=== PATIENT | male | born 2005 | race Hispanic/Latino ===

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

== ENCOUNTER 2024-05-08 20:28 | Emergency (ER) | payer OTHER, SELFPAY ==
--- NOTE | 2024-05-08 20:48 | ER ---
Nurse's Notes [facility] Name: Marcus Shetty Age: 18 yrs Sex: Male : 2005 Arrival Date: 05/08/2024 Time: 20:28 Bed 20 Private MD: Diagnosis: Bitten by dog Presentation: 05/08 20:39 Chief complaint: Patient states: was out on a run and got bit by a dog on bilateral al5 lower legs. Coronavirus screen: At this time, the client does not indicate any symptoms associated with coronavirus-19. Ebola Screen: No symptoms or risks identified at this time. Initial Sepsis Screen: Does the patient meet any 2 criteria? No. Patient's initial sepsis screen is negative. Does the patient have a suspected source of infection? No. Patient's initial sepsis screen is negative. Risk Assessment: Do you want to hurt yourself or someone else? Patient reports no desire to harm self or others. Onset of symptoms was May 08, 2024. 20:39 Method Of Arrival: Ambulatory al5 20:39 Acuity: TAMI 4 al5 Triage Assessment: 20:37 General: Appears in no apparent distress. Behavior is calm, cooperative. Pain: al5 Complains of pain in right leg and left leg. EENT: No signs and/or symptoms were reported regarding the EENT system. Neuro: Level of Consciousness is awake, alert, obeys commands, Oriented to person, place, time, situation. Cardiovascular: Patient's skin is warm and dry. Respiratory: Airway is patent Respiratory effort is even, unlabored, Respiratory pattern is regular, symmetrical. GI: No signs and/or symptoms were reported involving the gastrointestinal system. : No signs and/or symptoms were reported regarding the genitourinary system. Derm: Skin is pink, warm \T\ dry. normal. Derm: Reports dog bite in bilateral lower legs. no active bleeding at this time, but has had some bleeding. Musculoskeletal: No signs and/or symptoms reported regarding the musculoskeletal system. Injury Description: Bite sustained to right leg and left leg caused by a dog, was sustained 1-2 hours ago. 21:20 Bite description: bite sustained to lateral aspect of right calf and left leg and right cp4 leg by a dog, animal information: vaccination(s) is unknown. Historical: - Allergies: 20:37 No Known Allergies; al5 - PMHx: 20:37 ADD/ADHD; al5 - PSHx: 20:37 None; al5 - Immunization history:: Adult Immunizations up to date, Last tetanus immunization: needs a tetanus vaccine.. - Infectious Disease History:: Denies. - Social history:: Smoking status: Patient denies any tobacco usage or history of. Screenin:53 [facility] ED Fall Risk Assessment (Adult) History of falling in the last 3 months, cp4 including since admission No falls in past 3 months (0 pts) Confusion or Disorientation No (0 pts) Intoxicated or Sedated No (0 pts) Impaired Gait No (0 pts) Mobility Assist Device Used No (0 pt) Altered Elimination No (0 pt) Score/Fall Risk Level 0 - 2 = Low Risk Oriented to surroundings, Maintained a safe environment, Assessed \T\ reinforced patient's understanding of fall precautions, Hourly rounding (assess needs \T\ fall precautionary measures) done. Abuse screen: Denies threats or abuse. Nutritional screening: No deficits noted. Tuberculosis screening: No symptoms or risk factors identified. Assessment: 20:53 Reassessment: Patient already filed report with [facility]. Case # [id number] [employer]. cp4 General: Appears in no apparent distress. comfortable, Behavior is calm, cooperative, appropriate for age. Pain: Denies pain. Neuro: Level of Consciousness is awake, alert, obeys commands, Oriented to person, place, time, situation. Cardiovascular: No deficits noted. Respiratory: No deficits noted. GI: No deficits noted. : No deficits noted. EENT: No deficits noted. Derm: Skin Puncture lewis and scratches to the bilateral lower legs. 21:06 Reassessment: Dispo pending. Patient on shot time. cp4 Vital Signs: 20:39 BP 129 / 73; Pulse 82; Resp 16; Temp 98.8; Pulse Ox 99% on R/A; Weight 58.97 kg; Height al5 5 ft. 6 in. ; 21:19 BP 124 / 74; Pulse 87; Resp 16; Temp 98.8; Pulse Ox 99% ; cp4 20:39 Body Mass Index 20.98 (58.97 kg, 167.64 cm) al5 ED Course: 20:29 Patient arrived in ED. ec2 20:29 Rolan Billy MD is Attending Physician. ec2 20:41 Triage completed. al5 20:41 Arm band placed on right wrist. Patient placed in an exam room, on a stretcher. al5 20:53 Dayanara Lincoln is Primary Nurse. cp4 20:53 Bed in low position. Call light in reach. Side rails up X 1. Provided Education on: dog cp4 bite. 20:53 No provider procedures requiring assistance completed. Patient did not have IV access cp4 during this emergency room visit. 21:04 Wound care: to laceration located on right leg and left leg was cleaned with soap and af3 water, Patient tolerated well. Administered Medications: 21:05 Drug: Boostrix Tdap IM 0.5 ml IM once; as a single dose Route: IM; Site: right deltoid; cp4 21:18 Follow up: Response: No adverse reaction cp4 21:06 Drug: Amoxicillin-Clavulanate PO 875 mg PO once Route: PO; cp4 21:18 Follow up: Response: No adverse reaction cp4 Medication: 20:53 VIS not applicable for this client. cp4 Outcome: 20:47 Discharge ordered by . ec2 21:19 Discharged to home ambulatory, cp4 21:19 Condition: stable 21:19 Discharge instructions given to patient, Instructed on discharge instructions, follow up and referral plans. medication usage, Demonstrated understanding of instructions, follow-up care, medications, Prescriptions given X 1, 21:21 Patient left the ED. cp4 Signatures: Rolan Billy MD MD ec2 Dayanara Lincoln cp4 Fabby Dietz, RN RN al5 Rose Hoff [facility]
--- NOTE | 2024-05-08 20:48 | EDPHYS ---
Physician Documentation [facility] Name: Marcus Shetty Age: 18 yrs Sex: Male : 2005 Arrival Date: 05/08/2024 Time: 20:28 Bed 20 Private MD: ED Physician Rolan Billy HPI: 05/08 20:44 This 18 yrs old Male presents to ER via Ambulatory with complaints of Dog Bite.ec2 20:44 Patient arrives today for evaluation after dog bite to the right lateral calf. Occurred ec2 just prior to arrival. Unsure of tetanus status. Unsure of dog's rabies status. No other injuries, no other concerns.. Historical: - Allergies: 20:37 No Known Allergies; al5 - PMHx: 20:37 ADD/ADHD; al5 - PSHx: 20:37 None; al5 - Immunization history:: Adult Immunizations up to date, Last tetanus immunization: needs a tetanus vaccine.. - Infectious Disease History:: Denies. - Social history:: Smoking status: Patient denies any tobacco usage or history of. ROS: 20:44 Constitutional: as per hpi ec2 Exam: 20:44 Constitutional: GEN: NAD Head: atraumatic Eyes: EOMI Ears: External ears are ec2 normal. CV: regular rate LUNGS: no respiratory distress ABD: non-distended SKIN: Puncture wound noted to the right lateral calf, dried blood present. Approximately 2 x 3 cm in size. Left calf also with small puncture wound noted. MSK: no bony deformities NEURO: moves all extremities equally Vital Signs: 20:39 BP 129 / 73; Pulse 82; Resp 16; Temp 98.8; Pulse Ox 99% on R/A; Weight 58.97 kg; Height al5 5 ft. 6 in. ; 21:19 BP 124 / 74; Pulse 87; Resp 16; Temp 98.8; Pulse Ox 99% ; cp4 20:39 Body Mass Index 20.98 (58.97 kg, 167.64 cm) al5 MDM: 20:29 Patient medically screened. ec2 20:44 Data reviewed: vital signs. ED course: Patient arrives today for evaluation of dog bite ec2 wound. Examination remarkable for skin findings as above. Will start the patient empirically on Augmentin, update his tetanus status. I had an at length discussion regarding rabies vaccination however the patient declined. Will start the patient on Augmentin and have him follow-up outpatient expectantly.. 05/08 20:44 Order name: Wound Care; Complete Time: 20:59 ec2 Administered Medications: 21:05 Drug: Boostrix Tdap IM 0.5 ml IM once; as a single dose Route: IM; Site: right deltoid; cp4 21:18 Follow up: Response: No adverse reaction cp4 21:06 Drug: Amoxicillin-Clavulanate PO 875 mg PO once Route: PO; cp4 21:18 Follow up: Response: No adverse reaction cp4 Disposition Summary: 05/08/24 20:47 Discharge Ordered Notes: Location: Home ec2 Condition: Stable ec2 Diagnosis - Bitten by dog ec2 Followup: ec2 - With: Private Physician - When: - Reason: Re-evaluation by your physician Discharge Instructions: - Discharge Summary Sheet ec2 - Animal Bite, Adult, [id number] ec2 Forms: - Medication Reconciliation Form ec2 - Antibiotic Education ec2 - Prescription Opioid Use ec2 - Patient Portal Instructions ec2 - Leadership Thank You Letter ec2 Prescriptions: - Augmentin 875-125 mg Oral Tablet - take 1 tablet ORAL route every 12 hours for 10 days; 20 tablet; Refills: 0, ec2 Product Selection Permitted Signatures: Rolan Billy MD MD ec2 Dayanara Lincoln cp4 Fabby Dietz RN RN al5
[2024-05-08] MEDS ORDERED: TDAP (DIPHTH,PERTUSS(ACELL),TET VAC) 0.5 ML VIAL IMVAC ONE (21:01)
[2024-05-08] MEDS ORDERED: AMOX/K CLAV 875 MG TAB ONE (21:01)
[2024-05-08 21:25] VITALS: TEMP 98.8; O2SAT 99
[2024-05-08 21:26] VITALS: BP 124/74
== END 2024-05-08 21:21 | disposition home or self-care (01) ==
LOC: ER 20:28
DX: S81.831A Puncture wound without foreign body, right lower leg, initial encounter (principal); W54.0XXA Bitten by dog, initial encounter; Z23 Encounter for immunization
CPT/HCPCS: 96372; 99284